=== PATIENT | male | born 1980 | race Caucasian/White ===

== ENCOUNTER 2017-12-12 10:19 | Inpatient (IN) | payer MEDICAID, OTHER ==
--- NOTE | 2017-12-12 10:31 | EDPHY ---
General Time Seen by Provider: 12/12/17 10:26 Narrative: CHIEF COMPLAINT: M1 hold HISTORY OF PRESENT ILLNESS: Patient presents by EMS on an M1 hold due to psychosis. Documentation by a physician at the [facility] reviewed. There is documentation that he has been exhibiting psychosis, delusions and his medications likely need to be altered. He denies feeling suicidal but has felt somewhat agitated as he feels that his physician is improperly changing his medications. He has been weaned off of his diazepam recently under close supervision. He denies any seizure- like activities, chest pain or headache. He says he has felt very anxious from this and feels that his medications need to be changed again. No other associated complaints or modifying factors. PSYCHIATRIC DIAGNOSES: Schizoaffective, bipolar, anxiety PRIOR PSYCHIATRIC EVALUATIONS: Multiple inpatient evaluations M1/DETAINER: 9:45 a.m. Today by physician at the [facility] REVIEW OF SYSTEMS: Ten systems reviewed and are negative unless otherwise noted in the HPI EXAMINATION General Appearance: Alert, no distress. Well-developed well-nourished. Fidgeting Head: normocephalic, atraumatic Eyes: Pupils equal and round, no conjunctival pallor or injection ENT, Mouth: Mucous membranes moist Neck: Normal inspection, supple, non-tender Respiratory: Lungs are clear to auscultation Cardiovascular: Regular rate and rhythm Gastrointestinal: Abdomen is soft and nontender Back: non-tender, no bony abnormalities Neurological: GCS 15. A&O, nonfocal, normal gait. No tremor. Strength is symmetric in all 4 limbs. No pronator drift Skin: Warm and dry, no rash Extremities: Nontender, no pedal edema Psychiatric: Anxious and fidgeting. Flat affect. Exhibits paranoid delusions DIFFERENTIAL DIAGNOSES: Including but not limited to psychosis, schizoaffective, bipolar, suicidal, withdrawal MDM: 10:40 a.m. M1 hold due to psychotic behavior, reported aggressive behavior. Patient denies suicidal ideation. He is not altered. He does not exhibit any signs of withdrawal, delirium tremens or altered mentation at this time. Urine provided. Laboratory studies pending. I have also ordered a lithium level for this patient. 11:30 a.m. Patient is medically cleared for evaluation at this time. 1:00 p.m. Patient is currently being evaluated by [facility] 3:50 p.m. Evaluation is still ongoing but the patient has been accepted by Dr. Stone to [address] [place] [address] for inpatient care he is still on a 90 day hold for his psychiatric care. He will be transported by [facility]. He is transferred in stable condition. SUPERVISION: Patient was independently examined, but I discussed the case with my secondary supervising physician Dr. Orosco ([facility]) - Objective Vital Signs: Initial Vital Signs Temperature (C) 36.6 C 12/12/17 10:28 Heart Rate 91 12/12/17 10:28 Respiratory Rate 18 12/12/17 10:28 Blood Pressure 125/89 H 12/12/17 10:28 O2 Sat (%) 95 12/12/17 10:28 O2 Delivery Mode Room Air Allergies/Adverse Reactions: No Known Allergies Allergy (Unverified 12/12/17 10:35) Home Medications: Medication Instructions Recorded Acetaminophen [Tylenol 325mg (*)] 650 mg PO Q4H PRN 12/12/17 Cholecalciferol Vit D3 [Vitamin D3 50,000 unit PO WE 12/12/17 (*)] Diazepam [Valium 5 MG (*)] 5 mg PO TID PRN 12/12/17 Sisseton Carbonate ER [Eskalith Cr 1,350 mg PO HS 12/12/17 450 mg (*)] Magnesium Hydroxide [Milk of 30 ml PO DAILY PRN 12/12/17 Magnesia] Mbx Soln;Maalox/Diphen/Lido 15 ml PO Q6H PRN 12/12/17 [Maalox/Diphenhydramine/Lido] OLANZapine [Zyprexa] 10 mg PO DAILY 12/12/17 OLANZapine [Zyprexa] 30 mg PO HS 12/12/17 cloZAPine [Clozaril (*)] 25 - 50 mg PO AD 12/12/17 clonIDINE [Catapres (*)] 0.1 mg PO TID PRN 12/12/17 diphenhydrAMINE [Benadryl 50 MG 50 mg PO QID PRN 12/12/17 (*)] Laboratory Results: Laboratory Results 12/12/17 10:37 12/12/17 10:37 12/12/17 12/12/17 12/12/17 10:37 10:37 10:30 WBC 8.58 10^3/uL 10^3/uL (3.80-9.50) RBC 4.51 10^6/uL 10^6/uL (4.40-6.38) Hgb 13.7 g/dL g/dL (13.7-17.5) Hct 41.7 % % (40.0-51.0) MCV 92.5 fL fL (81.5-99.8) MCH 30.4 pg pg (27.9-34.1) MCHC 32.9 g/dL g/dL (32.4-36.7) RDW 12.8 % % (11.5-15.2) Plt Count 280 10^3/uL 10^3/uL (150-400) MPV 8.9 fL fL (8.7-11.7) Neut % (Auto) 71.3 % % (39.3-74.2) Lymph % (Auto) 19.6 % % (15.0-45.0) [place] % (Auto) 5.8 % % (4.5-13.0) Eos % (Auto) 2.8 % % (0.6-7.6) Baso % (Auto) 0.3 % % (0.3-1.7) Nucleat RBC Rel Count 0.0 % % (0.0-0.2) Absolute Neuts (auto) 6.11 10^3/uL 10^3/uL (1.70-6.50) Absolute Lymphs (auto) 1.68 10^3/uL 10^3/uL (1.00-3.00) Absolute Monos (auto) 0.50 10^3/uL 10^3/uL (0.30-0.80) Absolute Eos (auto) 0.24 10^3/uL 10^3/uL (0.03-0.40) Absolute Basos (auto) 0.03 10^3/uL 10^3/uL (0.02-0.10) Absolute Nucleated RBC 0.00 10^3/uL 10^3/uL (0-0.01) Immature Gran % 0.2 % % (0.0-1.1) Immature Gran # 0.02 10^3/uL 10^3/uL (0.00-0.10) Sodium 140 mEq/L mEq/L (135-145) Potassium 4.5 mEq/L mEq/L (3.5-5.2) Chloride 105 mEq/L mEq/L (97-110) Carbon Dioxide 24 mEq/l mEq/l (22-31) Anion Gap 11 mEq/L mEq/L (8-16) BUN 16 mg/dL mg/dL (7-23) Creatinine 1.0 mg/dL mg/dL (0.7-1.3) Estimated GFR > 60 Glucose 87 mg/dL mg/dL (70-100) Calcium 9.7 mg/dL mg/dL (8.5-10.4) Salicylates < 1.0 mg/dL L mg/dL (2.0-20.0) Urine Opiates Screen NEGATIVE (NEGATIVE) Acetaminophen < 10 mcg/mL L mcg/mL (10-30) Urine Barbiturates NEGATIVE (NEGATIVE) Ur Phencyclidine Scrn NEGATIVE (NEGATIVE) Ur Amphetamine Screen NEGATIVE (NEGATIVE) U Benzodiazepines Scrn NON-NEGATIVE H (NEGATIVE) Sisseton 0.6 mEq/L mEq/L (0.6-1.2) Urine Cocaine Screen NEGATIVE (NEGATIVE) U Marijuana (THC) Screen NEGATIVE (NEGATIVE) Ethyl Alcohol < 10 mg/dL mg/dL (0-10) Departure - Departure Disposition: [facility] IP Clinical Impression: Bipolar 1 disorder Schizoaffective disorder Qualifiers: Schizoaffective disorder type: bipolar Qualified Code(s): F25.0 - Schizoaffective disorder, bipolar type Condition: Fair
[2017-12-12 10:45] LABS: PLATELET COUNT 280 10^3/uL (150-400)
[2017-12-12] MEDS ORDERED: LORazepam 0.5 MG TAB PO PRN (19:01)
[2017-12-12] MEDS ORDERED: MAGNESIUM HYDROXIDE 30 ML UDCUP PO PRN (19:01)
[2017-12-12] MEDS ORDERED: ACETAMINOPHEN 325 MG TAB PO PRN (19:01)
[2017-12-12] MEDS ORDERED: OLANZapine DISINTEGR 10 MG TAB PO PRN (19:01)
[2017-12-12] MEDS ORDERED: MAG HYDROX/AL HYDROX/SIMETH 30 ML UDCUP PO PRN (19:01)
[2017-12-12] MEDS ORDERED: DIAZEPAM 5 MG TAB PO PRN (19:02)
[2017-12-12] MEDS ORDERED: OLANZapine DISINTEGR 5 MG TAB PO PRN (19:30)
[2017-12-12] MEDS: cloZAPine 25 MG TAB PO SCH (21:36)
[2017-12-12] MEDS: LITHIUM CARBONATE ER 450 MG TAB PO SCH (21:37)
[2017-12-12] MEDS: DIAZEPAM 5 MG TAB PO SCH ×2 (21:37→21:41)
[2017-12-12] MEDS: OLANZapine 10 MG TAB PO SCH (21:38)
[2017-12-13] MEDS: NICOTINE POLACRILEX 2 MG GUM B PRN (07:10)
[2017-12-13] MEDS: OLANZapine 10 MG TAB PO SCH ×2 (07:45→21:17)
[2017-12-13] MEDS: DIAZEPAM 5 MG TAB PO SCH ×2 (07:57→21:20)
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
[2017-12-13] MEDS: PSYLLIUM METAMUCIL 1 PKT PO PRN (08:59)
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
[2017-12-13] MEDS: LITHIUM CARBONATE ER 450 MG TAB PO SCH (21:16)
[2017-12-13] MEDS: cloZAPine 25 MG TAB PO SCH (21:16)
[2017-12-14] MEDS: OLANZapine 10 MG TAB PO SCH ×2 (08:06→20:42)
[2017-12-14] MEDS: DIAZEPAM 5 MG TAB PO SCH ×2 (08:21→20:42)
[2017-12-14] MEDS: NICOTINE POLACRILEX 2 MG GUM B PRN ×2 (13:16→17:54)
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
--- NOTE | 2017-12-14 15:36 | HOSPPROG ---
Hospitalist Progress Note Assessment/Plan: # diarrhea - GI pathogen panel negative; may be due to malabsorption, medication induced, or diet - cont metamucil prn; if worsens, could trial imodium - defer further workup to outpatient Subjective: diarrhea seems a little better with metamucil Objective: Vital Signs Temp Pulse Resp BP Pulse Ox 36.5 C 58 L 14 102/63 95 12/14/17 06:00 12/14/17 06:00 12/14/17 06:00 12/14/17 06:00 12/14/17 06:00 Microbiology 12/14/17 07:00 Gastrointestinal Tract Panel (PCR) - Final Stool No Organism Detected - Physical Exam Constitutional: no apparent distress, appears nourished ICD10 Worksheet Patient Problems: Problems Problem Status Onset Schizoaffective disorder Acute Bipolar 1 disorder Acute
[2017-12-14] MEDS: LITHIUM CARBONATE ER 450 MG TAB PO SCH (20:41)
[2017-12-14] MEDS: cloZAPine 25 MG TAB PO SCH (20:41)
[2017-12-15] MEDS: OLANZapine 10 MG TAB PO SCH ×2 (07:35→20:41)
[2017-12-15] MEDS: PSYLLIUM METAMUCIL 1 PKT PO PRN (07:36)
[2017-12-15] MEDS: DIAZEPAM 5 MG TAB PO SCH ×2 (07:36→20:41)
[2017-12-15] MEDS: NICOTINE POLACRILEX 2 MG GUM B PRN ×2 (12:56→20:41)
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
[2017-12-15] MEDS: LITHIUM CARBONATE ER 450 MG TAB PO SCH (20:40)
[2017-12-15] MEDS: cloZAPine 25 MG TAB PO SCH (20:40)
[2017-12-16] MEDS: OLANZapine 10 MG TAB PO SCH ×2 (08:48→20:38)
[2017-12-16] MEDS: NICOTINE POLACRILEX 2 MG GUM B PRN ×2 (09:22→13:51)
[2017-12-16] MEDS: cloZAPine 25 MG TAB PO SCH (20:37)
[2017-12-16] MEDS: DIAZEPAM 5 MG TAB PO SCH (20:38)
[2017-12-16] MEDS: LITHIUM CARBONATE ER 450 MG TAB PO SCH (20:39)
--- NOTE | 2017-12-16 22:06 | SOAPPROG ---
SUSAN Progress Note Assessment/Plan: Assessment: Plan: 12/15/17 17:38 Psychosis: Appears to be stabilizing. Will CCM. Pt currently on crossover from Zyprexa to clozapine. He requests d/c to go back to [facility] as soon as possible. 12/16/17 22:06 Psychosis: Willl CCM , titrate meds. Subjective: Pt seen on morning rounds. Participating in gorups. Socializing appropriately. Discussed the case with Dr. Reinoso who remains concerned about pt's "inappropriate boundaries" with other residents. He remains in good behavioural control here. Objective: Vital Signs Temp Pulse Resp BP Pulse Ox 36.4 C 60 15 124/75 H 95 12/16/17 06:00 12/16/17 06:00 12/16/17 06:00 12/16/17 06:00 12/16/17 06:00 ICD10 Worksheet Patient Problems: Problems Problem Status Onset Bipolar 1 disorder Acute Schizoaffective disorder Acute
[2017-12-17] MEDS: NICOTINE POLACRILEX 2 MG GUM B PRN ×5 (07:12→18:31)
[2017-12-17 08:22] LABS: PLATELET COUNT 261 10^3/uL (150-400)
[2017-12-17] MEDS: OLANZapine 10 MG TAB PO SCH ×2 (08:59→20:33)
--- NOTE | 2017-12-17 14:00 | SOAPPROG ---
SODOUG Progress Note Assessment/Plan: Assessment: Plan: 12/15/17 17:38 Psychosis: Appears to be stabilizing. Will CCM. Pt currently on crossover from Zyprexa to clozapine. He requests d/c to go back to [facility] as soon as possible. 12/16/17 22:06 Psychosis: Willl CCM , titrate meds. 12/17/17 14:00 Psychosis: Improving. Will CCM, increase cloz. Likely d/c to tomorrow if all is well. Subjective: Pt seen, discussed with staff. Dr. Tran came to unit to participate in treatment planning and see pt. He agrees that he is doing much better. No behavioral issues. More organized. Objective: Vital Signs Temp Pulse Resp BP Pulse Ox 36.6 C 50 L 16 104/64 96 12/17/17 06:00 12/17/17 06:00 12/17/17 06:00 12/17/17 06:00 12/17/17 06:00 Laboratory Results 12/17/17 06:00 - Time Spent With Patient Time Spent With Patient: 25" ICD10 Worksheet Patient Problems: Problems Problem Status Onset Bipolar 1 disorder Acute Schizoaffective disorder Acute
[2017-12-17] MEDS: cloZAPine 25 MG TAB PO SCH (20:33)
[2017-12-17] MEDS: DIAZEPAM 5 MG TAB PO SCH (20:33)
[2017-12-17] MEDS: LITHIUM CARBONATE ER 450 MG TAB PO SCH (20:33)
[2017-12-18 06:35] VITALS: BP 105/68
[2017-12-18] MEDS: NICOTINE POLACRILEX 2 MG GUM B PRN (06:38)
[2017-12-18] MEDS: OLANZapine 10 MG TAB PO SCH (08:58)
== END 2017-12-18 10:05 | DRG 885 ==
LOC: EDUNIT# → BBEH 18:30
PROVIDERS: ADMIT Psychiatry & Neurology Psychiatry; ATTEND Psychiatry & Neurology Psychiatry
DX: F25.0 Schizoaffective disorder, bipolar type (principal); R19.7 Diarrhea, unspecified
CPT/HCPCS: 80305; G0480

== ENCOUNTER → 2018-08-12 | Outpatient (CLI) | payer OTHER | LOC: BMCLAB 12:14 ==